=== PATIENT | female | born 1970 | race Hispanic/Latino ===

== ENCOUNTER 2020-09-21 10:26 | Emergency (ER) | payer BC, OTHER ==
[2020-09-21] MEDS ORDERED: ONDANSETRON HCL 4 MG/2 ML VIAL ONE (11:06)
[2020-09-21] MEDS ORDERED: MORPHINE SULFATE 4 MG/1ML SYG ONE (11:07)
[2020-09-21] MEDS ORDERED: CYCLOBENZAPRINE HCL 10 MG TABLET ONE (11:07)
== END 2020-09-21 13:32 | disposition home or self-care (01) ==
LOC: EDH 10:26
DX: S39.012A Strain of muscle, fascia and tendon of lower back, initial encounter (principal); M54.16 Radiculopathy, lumbar region; D68.0 Von Willebrand disease; M79.7 Fibromyalgia; I10 Essential (primary) hypertension; F32.9 Major depressive disorder, single episode, unspecified; Z88.0 Allergy status to penicillin; Z88.8 Allergy status to other drugs, medicaments and biological substances; Z88.6 Allergy status to analgesic agent; X58.XXXA Exposure to other specified factors, initial encounter; Y93.89 Activity, other specified; Y92.89 Other specified places as the place of occurrence of the external cause; Y99.8 Other external cause status
CPT/HCPCS: 72100; 96374; 96375; 99284; J2270; J2405